=== PATIENT | female | born 1985 | race African-American/Black ===

== ENCOUNTER 2017-02-17 22:41 | Emergency (ER) | payer SELFPAY ==
[~2017-02-17] VITALS: Ht 172.7 cm; Wt 65.0 kg
[~2017-02-17 22:41] MED LIST: HYDR50TA94 PO; PRED20 PO; RANI300T PO
[2017-02-17 22:43] VITALS: BP 128/77; PULSE 77; RESP 16; TEMP 98.6; O2SAT 100
[2017-02-18] MEDS ORDERED: PROPARACAINE HCL 0.5% OPHT SOLN 15 ML BTL EACH EYE ONE (00:15)
[2017-02-18] MEDS ORDERED: POLYMYXIN/TRIMETHOPRIM OPHT SOLN 10 ML BTL LEFT EYE ONE (00:15)
--- NOTE | 2017-02-18 00:21 | PD ---
HPI Chief Complaint: Eye Problems/Injury Time Seen by Provider: 00:00 Travel History International Travel<30 days: No Contact w/Intl Traveler<30days: No Traveled to known affect area: No History of Present Illness HPI 31-year-old female here for evaluation of left eye pain, blurry vision, and discharge. Symptoms started today at around 5:30 PM after getting out of the shower. She describes a burning/itching sensation in her left eye. Patient reports upper respiratory symptoms with a dry cough for the last week with sore throat as well. She denies fevers or chills. No foreign body sensation in her left eye. She does not wear contacts or glasses. PFS Past Medical History Medical History: Denies Significant Hx Diminished Hearing: No Tetanus Vaccination: Unknown Influenza Vaccination: No ?: Not LMP: 02/04/2017 Past Surgical History Surgical History: No Previous Surgery Social History Alcohol Use: Yes (occionally) Tobacco Use: No Substance Use: No Allergies-Medications (Allergen,Severity, Reaction): Coded Allergies: penicillin G (Unverified Allergy, Severe, 02/18/17) Reported Meds & Prescriptions Reported Meds & Active Scripts Active Polytrim Opth Drops (Polymyxin/Trimethoprim Sulfate) 10,000-0.1 Unit/Ml-% Soln 1 Drop LEFT EYE Q6HR 7 Days Review of Systems Except as stated in HPI: all other systems reviewed are Neg Physical Exam Narrative GENERAL: Well-developed, well-nourished, awake, alert, comfortable, no apparent distress. SKIN: Focused skin assessment warm/dry. No rash. HEAD: Atraumatic. Normocephalic. EYES: Pupils equal, round, 3 mm, reactive to light. EOMI. No proptosis. Bilateral corneas are clear. There is left conjunctival injection with slight chemosis medially with small amount of purulent discharge from the left eye only. Bilateral eyelids were everted without sign of foreign body. Ocular pressure in right eye is 17 mmHg, 18 mmHg in the left eye. Uncorrected visual acuity is 20/40 in the left eye, 20/30 in the right eye, 20/30 in bilateral eyes. ENT: Mucous membranes pink and moist. Pharynx with mild erythema without exudate. Uvula is midline. Normal phonation. NECK: Trachea midline. No JVD. CARDIOVASCULAR: Regular rate and rhythm. RESPIRATORY: No accessory muscle use. Clear to auscultation. Breath sounds equal bilaterally. MUSCULOSKELETAL: No obvious deformities. No clubbing. No cyanosis. No edema. NEUROLOGICAL: Awake and alert. No obvious cranial nerve deficits. Motor grossly within normal limits. Normal speech. PSYCHIATRIC: Appropriate mood and affect; insight and judgment normal. Data Data Last Documented VS Vital Signs Date Time Temp Pulse Resp B/P Pulse Ox O2 Delivery O2 Flow Rate FiO2 02/17/17 22:43 98.6 77 16 128/77 100 Room Air Orders Proparacaine 0.5% Opth Soln (Alcaine 0.5 (02/18/17 00:15) Group A Rapid Strep Screen (02/18/17 00:09) Polymyxin/Trimethop Opht Soln (Polytrim (02/18/17 00:15) Strep Culture (Group A) (02/18/17 00:27) MDM Medical Decision Making Medical Screen Exam Complete: Yes Emergency Medical Condition: Yes Differential Diagnosis Conjunctivitis: Bacterial versus viral, acute angle-closure glaucoma is unlikely , viral illness, pharyngitis Narrative Course Patient's physical exam findings consistent with conjunctivitis. See eye exam in physical exam section. She will be started on Polytrim eyedrops and will be given the name of the [employer]ter with whom to follow-up with this week. Patient informed on when to return to the emergency department. She verbalizes understanding and agreement with plan. Diagnosis Primary Impression: Conjunctivitis Qualified Code: H10.9 - Conjunctivitis of left eye, unspecified conjunctivitis type Referrals: Jaqui Fernandez MD 3 days Additional Instructions: Follow-up with [employer] Dr. Fernandez or [employer] of your choice this week. Use antibiotics as prescribed. Return to the emergency department for worsening symptoms or any other concerns. Scripts Polymyxin B-Trimethoprim Opth Drops (Polytrim Opth Drops)10,000-0.1 Unit/Ml-% Soln1 Drop LEFT EYE Q6HR 7 Days Ref 0 Prov:Chris Greenfield MD 02/18/17 Disposition: 01 DISCHARGE HOME Condition: Stable Chris Greenfield MD Feb 18, 2017 00:21
[2017-02-18] MEDS ORDERED: POLY10O LEFT EYE (00:22)
== END 2017-02-18 01:40 | disposition home or self-care (01) ==
LOC: NEPD 22:41
DX: H10.9 Unspecified conjunctivitis (principal); R05 Cough; R07.0 Pain in throat
CPT/HCPCS: 87081; 87880; 99283